=== PATIENT | male | born 1965 | race Caucasian/White ===

== ENCOUNTER 2017-02-03 08:35 | Emergency (ER) | payer OTHER ==
[~2017-02-03] VITALS: Wt 90.0 kg
[~2017-02-03 08:35] MED LIST: AMLO-145 PO; ASPI-664 PO
[2017-02-03] MEDS ORDERED: KETOROLAC 30 MG INJ IM STA (09:18)
[2017-02-03] MEDS ORDERED: OXYCODONE/ACETAMINOPHEN (5/325) TAB PO ONE (09:30)
[2017-02-03 09:57] LABS: ADD UMIC YES; URINE BILIRUBIN (Dip) NEGATIVE (NEGATIVE); URINE BLOOD (Dip) 2+ (NEGATIVE); URINE COLOR LT. YELLOW (YELLOW); URINE GLUCOSE (Dip) NEGATIVE (NEGATIVE); URINE KETONES (Dip) NEGATIVE (NEGATIVE); URINE LEUKOCYTE ESTERASE (Dip) NEGATIVE (NEGATIVE); URINE NITRITE (Dip) NEGATIVE (NEGATIVE); URINE TOTAL PROTEIN (Dip) NEGATIVE (NEGATIVE); URINE UROBILINOGEN (Dip) 0.2 E.U./dL (0.1-1.0)
--- NOTE | 2017-02-03 10:01 | RADRPT ---
PROCEDURE: CT Abdomen and Pelvis without contrast. CLINICAL INDICATION: Rule out renal stone. TECHNIQUE: CT scan of the abdomen and pelvis without contrast was performed on a multidetector hig h-resolution CT scanner. The patient was scanned without intravenous contrast. Coronal and sagittal reformatted images were obtained from the axial source images. Images were reviewed on a high-resol [employer] PACS workstation. The total exam CTDI equals 19.39 mGy and the total exam DLP equals 1242.43 m Gy-cm. One or the following dose reduction techniques were used: -Automated exposure control. -Adjustment of the mA and/or KV according to patient's size. -Use of iterative reconstruction technique. COMPARISON: CT abdomen pelvis from 02/18/2013. FINDINGS: Lung Bases: Unremarkable. GI:. There is a small hiatal hernia. Liver: The attenuation in the liver is slightly decreased suggesting mild diffuse steatosis. Gallbladder: Unremarkable. Pancreas: Unremarkable. Spleen: Unremarkablel Adrenals: Unremarkable. Kidneys: There is no evidence of nephrolithiasis. There is mild pyelocaliectasis and ureterectasis in the left kidney with a partially obstructing 6 x 4 mm calculus in the distal left ureter in the w all of the urinary bladder. There are small cysts in the right kidney. The largest is in the lower pole measuring 2.7 cm. Bladder: Unremarkable. Pelvic Organs: Unremarkable. Skeleton: Normal for age. Other: A normal-appearing appendix is visualized. IMPRESSION: 1. Partially obstructing 6 x 4 mm calculus at the distal ureteral vesicle junction on the left with mild pyelocaliectasis and ureterectasis. 2. Normal appearing appendix visualized. 3. Small right renal cysts. 4. Mild decreased attenuation of the liver suggesting diffuse steatosis. RPTAT: [facility] Physician Madelyn Date Time Electronically viewed and signed by Physician Madelyn on 02/03/2017 10:00 /
[2017-02-03] MEDS ORDERED: IBUP-1542 PO (10:08)
[2017-02-03] MEDS ORDERED: OXYC-279 PO (10:08)
[2017-02-03] MEDS ORDERED: CIPR500T4 PO (10:08)
--- NOTE | 2017-02-03 10:11 | ERD ---
ER Documentation Chief Complaint Date/Time DATE: 02/03/17 TIME: 10:10 Chief Complaint LEFT SIDE FLANK PAIN FOR FEW DAYS GETTING WORSE. NAUSEA AND MILD SOB HPI 51-year-old man complains of intermittent colicky left flank pain 2 days associated with dysuria. Patient denies hematuria, no fevers or chills, no penile discharge, no complaints of chest pain or shortness of breath. Patient denies recent antibiotic use or weight loss. ROS All systems reviewed and are negative except as per history of present illness. Medications Home Meds Active Scripts Tamsulosin Hcl* (Flomax*) 0.4 Mg Cap.er.24h, 0.4 MG PO DAILY, #3 CAP Prov:KAITLYNN PEÑA MD 02/03/17 Ibuprofen* (Motrin*) 600 Mg Tab, 600 MG PO Q8 for PAIN AND/OR INFLAMMATION, #30 TAB Prov:KAITLYNN PEÑA MD 02/03/17 Oxycodone HCl/Acetaminophen (Percocet 5-325 mg Tablet) 1 Each Tablet, 1 EACH PO TID for PAIN, #9 TAB Prov:KAITLYNN PEÑA MD 02/03/17 Ciprofloxacin Hcl* (Ciprofloxacin Hcl*) 500 Mg Tablet, 500 MG PO BID for 5 Days , TAB Prov:KAITLYNN PEÑA MD 02/03/17 Aspirin* (Aspirin* EC) 81 Mg Tablet.dr, 81 MG PO DAILY, #30 Prov:RAFIA HILL MD 09/01/16 Reported Medications Amlodipine Besylate* (Amlodipine Besylate*) 5 Mg Tablet, 5 MG PO DAILY, #30 TAB 08/31/16 Allergies Allergies: Coded Allergies: No Known Allergy (Unverified , 08/31/16) PMhx/Soc Obesity, hypertension, dyslipidemia, left ventricular ejection fraction of 55%, recent CT angiogram of the chest which was negative for pulmonary embolism or vascular issue History of Surgery: No Anesthesia Reaction: No Hx Neurological Disorder: No Hx Respiratory Disorders: No Hx Cardiac Disorders: Yes (HTN) Hx Psychiatric Problems: No Hx Miscellaneous Medical Probl: No Hx Alcohol Use: Yes (social) Hx Substance Use: No Hx Tobacco Use: No Smoking Status: Current some day smoker FmHx Family History: No diabetes Physical Exam Vitals Vital Signs Date Time Temp Pulse Resp B/P Pulse Ox O2 Delivery O2 Flow Rate FiO2 02/03/17 11:14 98.7 78 17 141/78 99 Room Air 02/03/17 08:41 98.6 102 22 169/88 99 Physical Exam GENERAL: Well-developed, well-nourished, in pain HEENT: Moist mucous membranes, pink conjunctiva, no cervical spine tenderness or step-off deformities, no goiter, no jaundice or icterus, extraocular movements intact without pain. No submandibular induration, and no pharyngeal erythema NEURO: Alert and oriented 3, cranial nerves II through XII intact bilaterally, pupils equal round reactive to light, no focal deficits or facial asymmetry, sensation intact distally Strength 5/5 in upper and lower extremities bilaterally CARDIAC: Regular rate and rhythm, no murmurs rubs or gallops LUNGS: Clear bilaterally no wheezing crackles or stridor ABDOMEN: Soft nontender, no guarding, no rigidity, no rebound, no psoas sign no obturator sign. Normoactive bowel sounds SKIN: Warm and dry to touch, no abrasions, contusions, or hematomas, no lacerations, no ecchymosis, no target lesions, and without ulcers EXTREMITIES: No clubbing cyanosis or edema, calves are bilaterally symmetrical, no Homans sign, no popliteal cord sign. Distal pulses equal and bilateral PSYCH: Normal affect without agitation or irritability Results 24 hrs Laboratory Tests Test 02/03/17 09:33 Urine Bilirubin NEGATIVE Urine Clarity CLEAR Urine Color LT. YELLOW Urine Glucose NEGATIVE% Urine Hemoglobin 2+ Urine Ketones NEGATIVE Urine Leukocyte Esterase NEGATIVE Urine Microscopic RBC 2-5/HPF Urine Microscopic WBC 0-2/HPF Urine Mucus FEW Urine Nitrite NEGATIVE Urine Specific [place] 1.015 Urine Squamous Epithelial Cells Urine Total Protein NEGATIVE Urine Urobilinogen 0.2 E.U./dL Urine pH 6.0 Current Medications Medications (Trade) Dose Ordered Sig/Jessica Route PRN Reason Start Time Stop Time Status Last Admin Dose Admin Ketorolac Tromethamine (Toradol) 30 mg ONCE STAT IM 02/03/17 09:18 02/03/17 09:20 DC 02/03/17 09:44 Oxycodone/ Acetaminophen (Percocet (5/ 325)) 1 tab ONCE ONCE PO 02/03/17 09:30 02/03/17 09:31 DC 02/03/17 09:45 Tamsulosin HCl (Flomax) 0.4 mg ONCE ONCE PO 02/03/17 10:30 02/03/17 10:31 DC 02/03/17 11:04 Procedures/MDM I administered Toradol 30 mg intramuscular injection, Percocet 1 tablet p.o. with good pain control. CT scan of abdomen pelvis revealed left ureter stone, no other acute inflammatory or infectious pathology was noted. Please refer to radiologist dictation for full report. Urine analysis revealed microscopic blood. Urine cultures have also been ordered results are pending I will follow-up. I administered tamsulosin 0.4 mg p.o. for diuresis. Patient will be managed as an outpatient with oral antibiotics, analgesics, and tamsulosin 3 more days. Differential diagnoses considered, included but not limited to acute coronary syndrome, pulmonary embolism, aortic dissection, abdominal aortic aneurysm, sepsis, stroke, meningitis, encephalitis, pneumonia, appendicitis, cholecystitis , bowel obstruction, pyelonephritis, nephrolithiasis, cystitis, as well as metabolic, hematologic, and electrolyte abnormalities. As well as abscess, cellulitis, fractures, and dislocations. Patient feels much better at this time, and vital signs are normal, symptoms have improved. I did give strict instructions to return to the ED if symptoms continue or worsen, patient will otherwise follow-up with primary care physician. Patient understood instructions and agreed to plan. Departure Diagnosis: Primary Impression: Kidney stone Condition: Good Patient Instructions: Kidney Stone W/ KAITLYNN Mosley MD Feb 03, 2017 10:10
[2017-02-03] MEDS ORDERED: TAMS-14 PO (10:27)
[2017-02-03] MEDS ORDERED: TAMSULOSIN (SR) 0.4 MG CAP PO ONE (10:30)
[2017-02-03 10:32] LABS: MUCUS,URINE FEW
[2017-02-03 11:14] VITALS: BP 141/78; PULSE 78; RESP 17; TEMP 98.7
== END 2017-02-03 11:14 | disposition home or self-care (01) ==
LOC: E/R 08:35
DX: N20.0 Calculus of kidney (principal); I10 Essential (primary) hypertension; F17.210 Nicotine dependence, cigarettes, uncomplicated; Z79.82 Long term (current) use of aspirin
CPT/HCPCS: 74176; 81001; 96372; J1885; Z7502; Z7610; 81003

== ENCOUNTER 2017-04-24 08:15 | Emergency (ER) | payer OTHER ==
[~2017-04-24] VITALS: Ht 162.6 cm; Wt 80.0 kg
[~2017-04-24 08:15] MED LIST changes: +CIPR500T4 PO; +IBUP-1542 PO; +OXYC-279 PO; +TAMS-14 PO
[2017-04-24 08:16] VITALS: Ht 162.6 cm; Wt 80.0 kg
--- NOTE | 2017-04-24 08:38 | ERD ---
ER Documentation Chief Complaint Date/Time DATE: 04/24/17 TIME: 08:34 Chief Complaint steiner x 3 days, took 2 advil in 3 days HPI 51 yo male with a history of hypertension comes in to the ER for 3 days of left sided occipital headache. Patient states that his headaches are 3 days ago bilaterally on the occipital regions, now he has persistent left-sided pain that is intermittent gradual in onset. He states that he thought it was his blood pressure and he had checked it and it was 189, today in triage it was 141/ 83. Pain did improve slightly however is continued in this is the patient's concern at this time. He denies any blurry vision, nausea, vomiting. No chest pain, shortness of breath. Patient denies that this is the worst headache of his life. ROS All systems reviewed and are negative except as per history of present illness. Medications Home Meds Active Scripts Hydrocodone/Acetaminophen (Delta 5-325 Tablet) 1 Each Tablet, 1 TAB PO Q6H Y for PAIN, #7 TAB Prov:JAYY WESLEY PA-C 04/24/17 Amoxicillin/Potassium Clav (Amox-Clav 875-125 mg Tablet) 875-125 mg Tab, 1 TAB PO BID for 7 Days, #14 TAB Prov:JAYY WESLEY PA-C 04/24/17 Tamsulosin Hcl* (Flomax*) 0.4 Mg Cap.er.24h, 0.4 MG PO DAILY, #3 CAP Prov:KAITLYNN PEÑA MD 02/03/17 Ibuprofen* (Motrin*) 600 Mg Tab, 600 MG PO Q8 for PAIN AND/OR INFLAMMATION, #30 TAB Prov:KAITLYNN PEÑA MD 02/03/17 Oxycodone HCl/Acetaminophen (Percocet 5-325 mg Tablet) 1 Each Tablet, 1 EACH PO TID for PAIN, #9 TAB Prov:KAITLYNN PEÑA MD 02/03/17 Ciprofloxacin Hcl* (Ciprofloxacin Hcl*) 500 Mg Tablet, 500 MG PO BID for 5 Days , TAB Prov:KAITLYNN PEÑA MD 02/03/17 Aspirin* (Aspirin* EC) 81 Mg Tablet., 81 MG PO DAILY, #30 Prov:RAFIA HILL MD 09/01/16 Reported Medications Amlodipine Besylate* (Amlodipine Besylate*) 5 Mg Tablet, 5 MG PO DAILY, #30 TAB 08/31/16 Allergies Allergies: Coded Allergies: No Known Allergy (Unverified , 08/31/16) PMhx/Soc History of Surgery: No Anesthesia Reaction: No Hx Neurological Disorder: No Hx Respiratory Disorders: No Hx Cardiac Disorders: No Hx Psychiatric Problems: No Hx Miscellaneous Medical Probl: Yes (HTN) Hx Alcohol Use: No Hx Substance Use: No Hx Tobacco Use: No Smoking Status: Never smoker Physical Exam Vitals Vital Signs Date Time Temp Pulse Resp B/P Pulse Ox O2 Delivery O2 Flow Rate FiO2 04/24/17 08:16 98.1 99 18 141/83 99 Physical Exam General: Well-developed, well-nourished. The patient appears in no acute distress. HEENT: Head is normocephalic, atraumatic. No scleral icterus. Temporal arteries are nontender. There is no rash. Left postauricular region, just anterior to the occipital region is tender to palpation. There is no rash, no abscess, no erythema. Neck: Supple. Nontender. Lungs: Clear to auscultation. Normal air movement. Heart: Regular rate and rhythm. S1 and S2 are normal. No murmurs, gallops, or rubs. Abdomen: Soft, nontender, nondistended. Bowel sounds are normoactive. Extremities: No clubbing or cyanosis. Normal pulses. Moving extremities x 4. No weakness. Neurologic: Alert and oriented 3. No focal deficits. Cranial nerves II 12 grossly intact. Speech and gait normal. Skin: Normal turgor. No rash or lesions. Results 24 hrs Current Medications Medications (Trade) Dose Ordered Sig/Jessica Route PRN Reason Start Time Stop Time Status Last Admin Dose Admin Acetaminophen/ Hydrocodone Bitart (Delta (5/325)) 1 tab ONCE ONCE PO 04/24/17 09:00 04/24/17 09:01 DC 04/24/17 08:37 DIAGNOSTIC IMAGING REPORT Patient: XOCHITL AHN : 1965 Age: 51 Sex: M MR #: [id number] DOS: 04/24/17 0832 Ordering MD: JAYY WESLEY PA-C Location: [facility] Room/Bed: AMENDMENT: 04/24/2017 9:11:55 AM Shan Mendosa M.D PROCEDURE: CT brain without contrast CLINICAL INDICATION: Left occipital headache radiating to left eye, hypertension TECHNIQUE: CT of the brain without contrast was performed on a multidetector CT scanner, with multiplanar reformats. One or more of the following dose reduction techniques were used: Automated exposure control, adjustment in mA and / or kV according to patient size, use of iterative reconstructive technique. CTDIvol = 44 mGy; DLP = 630 mGy-cm. COMPARISON: 07/27/2015 FINDINGS: No acute intracranial hemorrhage is identified. No extra-axial fluid collection is seen. There is no mass effect. No midline shift is identified. Ventricles and sulci are within normal limits for size and configuration. The density of the brain is unremarkable. Murillo-white differentiation is preserved. Mild atherosclerotic calcifications are seen at the intracranial internal carotid arteries. Osseous structures are unremarkable. Mild to moderate left sphenoid sinus mucosal thickening and secretions are seen.. IMPRESSION: 1. No evidence of acute intracranial pathology. 2. Paranasal sinus disease described above. RPTAT: [facility] Physician Madelyn Date Time Electronically viewed and signed by Physician Madelyn on 04/24/2017 09: 12 Procedures/[facility] ED course: Patient was given Delta for pain. MDM: 51-year-old male comes in with an occipital headache on the left side. Patient's pain is reproducible on palpation on the left occipital region. The location and reproducible pain upon palpation this is unlikely an intracranial process. Patient was concerned enough about his headache for 3 days, therefore CT scan of head was obtained. Patient had a CT scan of the head, there is no evidence of acute hemorrhage, mass-effect or midline shift. There was evidence of sinus, as well as mucosal thickening and secretions, and will be treated for sinus infection. Differential diagnosis includes tension headache, migraine having a very, and occipital neuralgia, meningitis, encephalitis, intracranial hemorrhage, mass, TIA, stroke, temporal arteritis. Patient's blood pressure was elevated (>120/80) but appears stable without evidence of hypertension emergency or urgency. The patient was counseled about the risks of hypertension and urged to pursue outpatient monitoring and therapy within a week with their primary care physician. Departure Diagnosis: Primary Impression: Headache Condition: Good JAYY WESLEY PA-C Apr 24, 2017 08:38
[2017-04-24] MEDS ORDERED: HYDROCODONE/APAP (5/325) TAB PO ONE (09:00)
--- NOTE | 2017-04-24 09:10 | RADRPT ---
AMENDMENT: 04/24/2017 9:11:55 AM Shan Mendosa M.D PROCEDURE: CT brain without contrast CLINICAL INDICATION: Left occipital headache radiating to left eye, hypertension TECHNIQUE: CT of the brain without contrast was performed on a multidetector CT scanner, with multi planar reformats. One or more of the following dose reduction techniques were used: Automated expos ure control, adjustment in mA and / or kV according to patient size, use of iterative reconstructive technique. CTDIvol = 44 mGy; DLP = 630 mGy-cm. COMPARISON: 07/27/2015 FINDINGS: No acute intracranial hemorrhage is identified. No extra-axial fluid collection is seen. There is no mass effect. No midline shift is identified. Ventricles and sulci are within normal limits for size and configuration. The density of the brain is unremarkable. Murillo-white differentiation is preserved. Mild atheroscle rotic calcifications are seen at the intracranial internal carotid arteries. Osseous structures are unremarkable. Mild to moderate left sphenoid sinus mucosal thickening and se cretions are seen.. IMPRESSION: 1. No evidence of acute intracranial pathology. 2. Paranasal sinus disease described above. RPTAT: [facility] Physician Madelyn Date Time Electronically viewed and signed by Physician Madelyn on 04/24/2017 09:12 /
[2017-04-24] MEDS ORDERED: AMOX1TAB10 PO (09:15)
[2017-04-24] MEDS ORDERED: HYDR-906 PO (09:15)
== END 2017-04-24 09:30 | disposition home or self-care (01) ==
LOC: FTE 08:15
DX: R51 Headache (principal); I10 Essential (primary) hypertension; Z79.82 Long term (current) use of aspirin
CPT/HCPCS: 70450; Z7502; Z7610

== ENCOUNTER 2019-04-25 22:01 | Emergency (ER) | payer OTHER ==
[~2019-04-25] VITALS: Ht 172.7 cm; Wt 93.0 kg
[~2019-04-25 22:01] MED LIST changes: +AMOX1TAB10 PO; -ASPI-664 PO; +ASPI-817 PO; +HYDR-4011 PO
[2019-04-25 22:05] VITALS: Ht 172.7 cm; Wt 93.0 kg
[2019-04-25] MEDS ORDERED: ONDANSETRON 4 MG INJ IV STA (22:33)
[2019-04-25] MEDS ORDERED: HYDROmorphONE 1 MG/ML SYG IV STA (22:33)
[2019-04-25] MEDS ORDERED: SOD CHLORIDE 0.9% 1,000 ML IV STA (22:33)
[2019-04-25] MEDS ORDERED: KETOROLAC 30 MG INJ IV STA (22:33)
[2019-04-25] MEDS ORDERED: HYDR-3980 PO (23:55)
[2019-04-25] MEDS ORDERED: INDO25CA16 PO (23:55)
[2019-04-25] MEDS ORDERED: PRED20TA PO (23:55)
--- NOTE | 2019-04-26 00:01 | ERD ---
ER Documentation Chief Complaint Chief Complaint RIGHT ANKLE PAIN & SWELLING X 1 DAY, NO TRAUMA, MILD BRUISING NOTED HPI Is a 51-year-old male has right ankle pain and swelling for 1 day. Denies any trauma. He said it happened after he had a large meal with alcohol. Denies any fevers or chills. He said he had similar types of pain in his elbows before that it resolved on their own. Denies any other current issues. ROS All systems reviewed and are negative except as per history of present illness. Medications Home Meds Active Scripts Prednisone* (Prednisone*) 20 Mg Tab, 60 MG PO DAILY for 4 Days, TAB Prov:RAFIA LOPES. 04/25/19 Hydrocodone/Acetaminophen ([place] 10-325 Tablet) 1 Each Tablet, 1 TAB PO Q6H PRN for PAIN, #20 TAB Prov:RAFIA LOPES S. 04/25/19 Indomethacin* (Indocin*) 25 Mg Capsule, 25 MG PO Q6, #30 CAP Prov:RAFIA LOPES 04/25/19 Hydrocodone/Acetaminophen ([place] 5-325 Tablet) 1 Each Tablet, 1 TAB PO Q6H PRN for PAIN, #7 TAB Prov:JAYY WESLEY PA-C 04/24/17 Amoxicillin/Potassium Clav (Amox-Clav 875-125 mg Tablet) 875-125 mg Tab, 1 TAB PO BID for 7 Days, #14 TAB Prov:JAYY WESLEY PA-C 04/24/17 Tamsulosin Hcl* (Flomax*) 0.4 Mg Cap.er.24h, 0.4 MG PO DAILY, #3 CAP Prov:KAITLYNN PEÑA MD 02/03/17 Ibuprofen* (Motrin*) 600 Mg Tab, 600 MG PO Q8 for PAIN AND/OR INFLAMMATION, #30 TAB Prov:KAITLYNN PEÑA MD 02/03/17 Oxycodone HCl/Acetaminophen (Percocet 5-325 mg Tablet) 1 Each Tablet, 1 EACH PO TID for PAIN, #9 TAB Prov:KAITLYNN PEÑA MD 02/03/17 Ciprofloxacin Hcl* (Ciprofloxacin Hcl*) 500 Mg Tablet, 500 MG PO BID for 5 Days, TAB Prov:KAITLYNN PEÑA MD 02/03/17 Aspirin* (Aspirin* EC) 81 Mg Tablet., 81 MG PO DAILY, #30 Prov:RAFIA HILL MD 09/01/16 Reported Medications Amlodipine Besylate* (Amlodipine Besylate*) 5 Mg Tablet, 5 MG PO DAILY, #30 TAB 08/31/16 Allergies Allergies: Coded Allergies: No Known Allergy (Unverified , 08/31/16) PMhx/Soc History of Surgery: No Anesthesia Reaction: No Hx Neurological Disorder: No Hx Respiratory Disorders: No Hx Cardiac Disorders: No Hx Psychiatric Problems: No Hx Miscellaneous Medical Probl: Yes (HTN) Hx Alcohol Use: No Hx Substance Use: No Hx Tobacco Use: No Smoking Status: Current every day smoker Physical Exam Vitals Vital Signs Date Temp Pulse Resp B/P (MAP) Pulse Ox O2 O2 Flow FiO2 Time Delivery Rate 04/25/19 99.0 140 24 188/110 97 22:05 (136) Physical Exam Const: No acute distress Head: Atraumatic Eyes: Normal Conjunctiva ENT: Normal External Ears, Nose and Mouth. Neck: Full range of motion. No meningismus. Resp: Clear to auscultation bilaterally Cardio: Regular rate and rhythm, no murmurs Abd: Soft, non tender, non distended. Normal bowel sounds Skin: No petechiae or rashes Back: No midline or flank tenderness Ext: No cyanosis, or edema Neur: Awake and alert Psych: Normal Mood and Affect Result Diagram: 04/25/190 04/25/192299 Results 24 hrs Laboratory Tests Test 04/25/19 22:50 04/25/19 23:00 Urine Color YELLOW Urine Clarity CLEAR Urine pH 5.0 Urine Specific [place] 1.025 Urine Ketones NEGATIVE mg/dL Urine Nitrite NEGATIVE mg/dL Urine Bilirubin NEGATIVE mg/dL Urine Urobilinogen NEGATIVE mg/dL Urine Leukocyte Esterase NEGATIVE Edith/ul Urine Microscopic RBC 1 /HPF Urine Microscopic WBC 2 /HPF Urine Bacteria FEW /HPF Urine Mucus MODERATE /HPF Urine Hemoglobin 1+ mg/dL Urine Glucose NEGATIVE mg/dL Urine Total Protein NEGATIVE mg/dl White Blood Count 9.2 10^3/ul Red Blood Count 5.26 10^6/ul Hemoglobin 14.6 g/dl Hematocrit 45.3 % Mean Corpuscular Volume 86.1 fl Mean Corpuscular Hemoglobin 27.8 pg Mean Corpuscular Hemoglobin Concent 32.2 g/dl Red Cell Distribution Width 13.2 % Platelet Count 221 10^3/UL Mean Platelet Volume 10.3 fl Immature Granulocytes % 0.300 % Neutrophils % 66.4 % Lymphocytes % 22.6 % Monocytes % 9.3 % Eosinophils % 0.9 % Basophils % 0.5 % Nucleated Red Blood Cells % 0.0 /100WBC Immature Granulocytes # 0.030 10^3/ul Neutrophils # 6.1 10^3/ul Lymphocytes # 2.1 10^3/ul Monocytes # 0.9 10^3/ul Eosinophils # 0.1 10^3/ul Basophils # 0.1 10^3/ul Nucleated Red Blood Cells # 0.0 10^3/ul Prothrombin Time 11.6 Sec Prothrombin Time Ratio 0.9 INR International Normalized Ratio 0.84 Activated Partial Thromboplast Time 25.5 Sec Sodium Level 142 mmol/L Potassium Level 4.4 mmol/L Chloride Level 107 mmol/L Carbon Dioxide Level 27 mmol/L Anion Gap 8 Blood Urea Nitrogen 24 mg/dl Creatinine 1.11 mg/dl Est Glomerular Filtrat Rate mL/min > 60 mL/min Glucose Level 132 mg/dl Uric Acid 7.4 mg/dl Calcium Level 9.6 mg/dl Total Bilirubin 0.6 mg/dl Direct Bilirubin 0.00 mg/dl Indirect Bilirubin 0.6 mg/dl Aspartate Amino Transf (AST/SGOT) 28 IU/L Alanine Aminotransferase (ALT/SGPT) 40 IU/L Alkaline Phosphatase 81 IU/L Total Protein 7.5 g/dl Albumin 4.4 g/dl Globulin 3.10 g/dl Albumin/Globulin Ratio 1.41 Lipase 107 U/L Current Medications Medications Dose Sig/Jessica Start Time Status Last (Trade) Ordered Route PRN Stop Time Admin Dose Reason Admin Sodium 1,000 ml @ Q1H STAT 04/25/19 DC 04/25/19 Chloride 1,000 mls/hr IV 22:33 04/25/19 22:51 23:32 1 mg ONCE STAT 04/25/19 DC 04/25/19 Hydromorphone IV 22:33 04/25/19 22:51 HCl 22:36 (Dilaudid) Ondansetron 4 mg ONCE STAT 04/25/19 DC 04/25/19 HCl (Zofran IV 22:33 04/25/19 22:50 Inj) 22:36 Ketorolac 30 mg ONCE STAT 04/25/19 DC 04/25/19 Tromethamine IV 22:33 04/25/19 22:50 (Toradol) 22:36 Procedures/MDM X-ray Ankle 3V Interpreted by me: Bones: [No fracture] Joints: No dislocation Medical decision make: 51-year-old male with evidence of gouty arthritis. Patient will be discharged home with prednisone, [place], indomethacin. Follow-up with PCP. Return for worsening symptoms. Departure Diagnosis: Primary Impression: Gout Gout site: unspecified site Gout etiology: unspecified cause Chronicity: unspecified Qualified Codes: M10.9 - Gout, unspecified Condition: Stable Patient Instructions: Gouty Arthritis, Gout Diet RAFIA LOPES Apr 26, 2019 00:01
[2019-04-26 00:11] VITALS: BP 159/106; PULSE 106; RESP 16
== END 2019-04-26 00:13 | disposition home or self-care (01) ==
LOC: E/R 22:01
DX: M10.9 Gout, unspecified (principal); I10 Essential (primary) hypertension; F17.210 Nicotine dependence, cigarettes, uncomplicated; Z79.82 Long term (current) use of aspirin
CPT/HCPCS: 36415; 73610; 80053; 81001; 83690; 84560; 85025; 85610; 85730; 87040; 93005; 96374; 96375; J1170; J1885; J2405; J7030; Z7502